=== PATIENT | male | born 1955 | race Caucasian/White ===

== ENCOUNTER 2022-10-21 08:41 | Outpatient (CLI) | payer MEDICARE, SELFPAY | END 2022-10-21 08:42 | disposition home or self-care (01) | PROVIDERS: PCP Family Medicine; Visit Provider Surgery | DX: Z12.11 Encounter for screening for malignant neoplasm of colon (principal); K63.5 Polyp of colon; K62.1 Rectal polyp; K57.30 Diverticulosis of large intestine without perforation or abscess without bleeding; Z83.71 Family history of colonic polyps | CPT/HCPCS: 45380; 45385; 88305; 99153; J1200; J2250; J3010 ==

== ENCOUNTER 2023-02-16 11:23 | Emergency (ER) | payer MEDICARE, SELFPAY ==
[2023-02-16] VITALS (9 sets, daily range): BP systolic 145–183; BP diastolic 75–109; PULSE 76–90; RESP 18; TEMP 36.3; O2SAT 96–99; BMI 32.1
--- NOTE | 2023-02-16 12:02 | CRLHL7_ITS ---
For Patients: As a result of the Cures Act, medical imaging exams and procedure reports are released immediately into your electronic medical record. You may view this report before your referring provider. If you have questions, please contact your health care provider. INDICATION: Right temporomandibular joint pain TECHNIQUE: CT maxillofacial without contrast. COMPARISON: None FINDINGS: Facial bones: No evidence of fracture. Minimal osteophytes bilateral temporomandibular joints with slight flattening of the right mandibular condyle consistent with osteoarthritis. Orbits and globes: Unremarkable. Globes are intact. No sign of intraorbital hemorrhage or emphysema. Sinuses: Mild mucosal thickening paranasal sinuses. Soft tissues: Atherosclerosis. IMPRESSION: Mild bilateral temporomandibular joint osteoarthritis, greater on the right. Please note that all CT scans at this facility use dose modulation, iterative reconstruction, and/or weight-based dosing when appropriate to reduce radiation dose to as low as reasonably achievable. Dictated by Nathaniel Amor MD @ 02/16/2023 1:13:25 PM (Electronically Signed)
--- NOTE | 2023-02-16 12:03 | ED_ITS ---
HPI - General Adult General Chief complaint: Jaw Injury/Pain Stated complaint: possible TIA symptoms Time Seen by Provider: 02/16/23 11:35 History of Present Illness HPI narrative: This 67-year-old male comes in reporting pain in the right temporal mandibular joint. He states that this pain is been present for the past several months but became worse over the last week and especially this morning. He has also had nausea symptoms and states that he has been taking Protonix. This morning also he had nausea and some associated diaphoresis. He is not taking any nausea medications. He does have diabetes but is otherwise in good health. He does not report any fevers or sore throat. He does not indicate any ear pain or dental pain. He states that he has sleep apnea and has worn a mouth guard on occasion which seems to give some relief to his symptoms. When he removes the mouth guard he feels more discomfort so his not worn this routinely. Related Data Home Medications Medication Instructions Recorded Confirmed atorvastatin 10 mg tablet 10 mg PO 06/20/22 06/20/22 blood sugar diagnostic (Accu-Chek #10 ea 06/20/22 06/20/22 Patt Plus test strips) glipizide 5 mg tablet, extended ea PO 06/20/22 06/20/22 release 24 hr lisinopril 10 1 tab PO 06/20/22 06/20/22 mg-hydrochlorothiazide 12.5 mg tablet metformin 500 mg tablet,extended tab PO 06/20/22 06/20/22 release 24 hr omeprazole 40 mg capsule,delayed 40 mg PO 06/20/22 06/20/22 release Previous Rx's Medication Instructions Recorded nirmatrelvir 300 mg (150 mg See Rx Instructions PO .COMPLEX 06/20/22 x2)-ritonavir 100 mg tablet,dose #30 ea pack(EUA) (Paxlovid) peg 3350-electrolytes 236 240 ml PO Q10M #4,000 mL 08/31/22 gram-22.74 gram-6.74 gram-5.86 gram solution (Golytely) methylprednisolone 4 mg tablets in See Rx Instructions PO .COMPLEX 02/16/23 a dose pack (Medrol (Demetrius)) #21 ea ondansetron HCl 4 mg tablet 4 mg PO Q6H #30 tabs 02/16/23 Allergies Allergy/AdvReac Type Severity Reaction Status Date / Time Sulfa (Sulfonamide Allergy Mild Rash Verified 06/20/22 10:56 Antibiotics) Review of Systems Status of ROS: Reports: 10 or more systems reviewed and unremarkable except as noted in History and below Narrative: Constitutional: No fevers, no weight gain or loss. Eyes: No discharge. No vision changes. HENT: No congestion, no sore throat, no ear pain. Right TMJ pain as described above. Cardiovascular: No chest pain, no palpitations. Respiratory: No shortness of breath, no wheezes, no cough. Gastrointestinal: No abdominal pain, no vomiting, no diarrhea. He reports recurrent nausea symptoms. Genitourinary: No dysuria, no hematuria. Musculoskeletal: Normal range of motion. Skin: No rashes, no pruritis. Neurological: No dizziness, weakness, sensory change, speech change. Endo/Heme/Allergies: No bruising or bleeding. No polydipsia. Pysch: no suicidality, no anxiety, no insomnia. All other systems reviewed and are negative. [facility] Medical History (Updated 02/16/23 @ 13:47 by Derik Solorio MD) COVID ?U07.1 - COVID-19 (ICD-10) Cough ?R05.9 - Cough, unspecified (ICD-10) Social History Smoking Status: Never smoker How often do you have a drink containing alcohol: monthly or less How often do you have six or more drinks on one occasion: Never AUDIT-C Alcohol total score: 1 Non-prescribed substance use: denies use Exam Narrative: Exam Narrative: Constitutional: Well-developed, well-nourished, no acute distress. HEENT: Normocephalic, atraumatic. Oropharynx appears normal. He has full range of motion of his mandible. He reports pain at the right TMJ. Neck: Normal range of motion. Nontender. Supple. Heart: Regular. No murmurs. Normal rate. Intact distal pulses. Lungs: Clear to auscultation. No chest discomfort. No wheezes, rhonchi, or rales. Abdomen: Normal bowel sounds. Nontender. No rebound tenderness. Genitalia: Deferred. Back: No midline tenderness. Normal range of motion. Extremities: Normal range of motion. No injury. Skin: Intact. No rash. Warm. No erythema or pallor. Neurologic: No altered sensation. No weakness. Alert and oriented. Psychiatric: No suicidality. No anxiety or depression. No insomnia. Nursing notes and vitals signs are reviewed. Const: Vital Signs, click to edit/add: Vital Signs - 24 hr 02/16/23 11:41 02/16/23 11:52 02/16/23 11:53 Temperature 97.3 F L Pulse Rate 88 80 Pulse Rate [Right Pulse Oximeter] 87 Respiratory Rate 18 Blood Pressure 164/86 H Blood Pressure [Ri ght Upper Arm] 183/109 H Pulse Oximetry 98 96 98 Oxygen Delivery Me thod Room Air 02/16/23 12:00 02/16/23 12:02 02/16/23 12:17 Temperature Pulse Rate 82 76 90 Pulse Rate [Right Pulse Oximeter] Respiratory Rate Blood Pressure 158/85 H Blood Pressure [Ri ght Upper Arm] Pulse Oximetry 98 98 99 Oxygen Delivery Me thod 02/16/23 12:30 02/16/23 12:37 02/16/23 12:45 Temperature Pulse Rate 82 78 76 Pulse Rate [Right Pulse Oximeter] Respiratory Rate Blood Pressure 145/75 H Blood Pressure [Ri ght Upper Arm] Pulse Oximetry 99 98 98 Oxygen Delivery Me thod Course Vital Signs Vital signs: Initial Vital Signs Temperature 97.3 F L 02/16/23 11:41 Temperature Source Temporal Artery Scan 02/16/23 11:41 Pulse Rate 87 02/16/23 11:41 Respiratory Rate 18 02/16/23 11:41 Blood Pressure 183/109 H 02/16/23 11:41 Blood Pressure Mean 133 H 02/16/23 11:41 Blood Pressure Position Sitting 02/16/23 11:41 Pulse Oximetry 98 02/16/23 11:41 Oxygen Delivery Method Room Air 02/16/23 11:41 Vital Signs Temperature 97.3 F L 02/16/23 11:41 Pulse Rate 87 02/16/23 11:41 Respiratory Rate 18 02/16/23 11:41 Blood Pressure 183/109 H 02/16/23 11:41 Pulse Oximetry 98 02/16/23 11:41 Oxygen Delivery Method Room Air 02/16/23 11:41 Temperature 97.3 F L 02/16/23 11:41 Pulse Rate 76 02/16/23 12:45 Respiratory Rate 18 02/16/23 11:41 Blood Pressure 145/75 H 02/16/23 12:37 Pulse Oximetry 98 02/16/23 12:45 Oxygen Delivery Method Room Air 02/16/23 11:41 Medical Decision Making MDM Narrative Medical decision making narrative: This patient comes in with pain in his right temporal mandibular joint. He has had this pain for several months but it has worsened recently. He states that he has worn a mouth guard and it does bring some relief while wearing it but when he takes at out his jaw are reverts back to a previous position that causes some discomfort for him so he has not worn it much recently. CT imaging of his facial bones today show no other findings except mild to moderate degenerative changes of the temporomandibular joints, right greater than left. The patient received a Medrol Dosepak and prescription for Zofran. He understands that the steroid will cause his blood glucose to elevate temporarily. I advised him to wear the mouth guard and to follow-up with his primary physician if not improving. ECG Data Attestation: I personally reviewed and interpreted this ECG as follows: Interpretation: Normal sinus rhythm. Rate is 81 beats per minute. There are no ST or T-wave a bnormalities. Discharge Plan Discharge Clinical Impression: TMJ arthralgia Patient Disposition: Home, Self-Care Condition: Stable Additional Instructions: Take medication as prescribed. It is recommended to where the mouth guard at night. Follow up with primary physician or return if worsening. Prescriptions: New ondansetron HCl 4 mg tablet 4 mg PO Q6H Qty: 30 0RF methylprednisolone [Medrol (Demetrius)] 4 mg tablets,dose pack See Rx Instructions .ROUTE .COMPLEX Qty: 21 0RF Rx Instructions: orally per package directions No Action glipizide 5 mg tablet extended release 24hr PO metformin 500 mg tablet extended release 24 hr PO omeprazole 40 mg capsule,delayed release(DR/EC) 40 mg PO lisinopril-hydrochlorothiazide 10-12.5 mg tablet 1 tab PO (DME) Accu-Chek Patt Plus test strp Strip See Rx Instructions .ROUTE .MEDSUPPLY Qty: 10 Patient Comments: USE TO TEST THREE TIMES DAILY Rx Instructions: As directed atorvastatin 10 mg tablet 10 mg PO Paxlovid (EUA) 300 mg (150 mg x 2)-100 mg tablets,dose pack See Rx Instructions PO .COMPLEX Qty: 30 0RF Rx Instructions: take TWO 150 mg tablets of nirmatrelvir with ONE 100 mg tablet of ritonavir twice daily for 5 days PO for covid treatment. peg 3350-electrolytes [Golytely] 236-22.74-6.74 -5.86 gram recon soln 240 ml PO Q10M Qty: 4000 0RF Rx Instructions: Follow colonoscopy prep instructions given in clinic. Follow Up/Referrals: Gerhard Rey MD [Primary Care Provider] - Stand [facility]one [facility]: [facility]
== END 2023-02-16 13:54 | disposition home or self-care (01) ==
PROVIDERS: Emergency Provider Emergency Medicine Emergency Medical Services; PCP Family Medicine
DX: M26.601 Right temporomandibular joint disorder, unspecified (principal); M26.621 Arthralgia of right temporomandibular joint
CPT/HCPCS: 70486; 93005; 99284

== ENCOUNTER 2024-11-27 11:15 | Outpatient (RCR) | payer MEDICARE, SELFPAY | END 2024-11-27 11:55 | disposition home or self-care (01) | PROVIDERS: PCP Family Medicine; Visit Provider Family Medicine | DX: M26.602 Left temporomandibular joint disorder, unspecified (principal); M26.622 Arthralgia of left temporomandibular joint; Z74.09 Other reduced mobility; R29.3 Abnormal posture; M62.81 Muscle weakness (generalized); Z51.89 Encounter for other specified aftercare | CPT/HCPCS: 97110; 97140; 97161 ==

== ENCOUNTER 2025-09-27 19:48 | Emergency (ER) | payer MEDICARE, SELFPAY ==
--- OUTSIDE RECORDS SUMMARY | 2023-09-30 03:31 | XMS_ITS | Continuity of Care Document ---
Author Organization [facility] Address [address] [address] [place] [address] Phone Care Team Providers Care Elastic Attacher Zigzag Name Role Phone Kerri Carnes CRNA Unavailable Unavailable Allergies, Adverse Reactions, Alerts Substance Reaction Status Criticality trimethoprim Rash Active No Information sulfamethoxazole Rash Active No Informat ion Medications Medication Instructions Dosage Effective Dates (start - stop) Status Comments metformin 500 mg tablet take 1 tablet by ORAL route 2 times every day . 500 MG - Active lisinopril 20 mg-hydrochlorothiaz michael 12.5 mg tablet take 2 tablet by oral route every day 2 tablet - Active glipizide ER 5 mg tablet, extended release 24 hr take 1 tablet by oral route every day with breakfast 5 MG - Active atorvastatin 10 mg tablet take 1 tablet by ORAL route every bedtime 10 MG - No Longer Active oxycodone 10 mg tablet take 1 tablet by oral route every 4 hours as needed 10 MG No Longer Active duloxetine 30 mg capsule,delayed release take 1 capsule by oral route every day 30 MG No Longer Active omeprazole 40 mg capsule,delayed release take 1 Capsule by ORAL route every day before a meal 40 MG No Longer Active famotidine 20 mg tablet take 1 by Oral route 2 times every day No Longer Active Procedures Procedure Date Ugi Endo; W/bx /mx Level Iv-surg Path Gross/micro Ugi Endo; W/bx /mx Jd-05-2022 Level Iv-surg Path Gross/micro Advance Directives Directive Yes / No Effective Date File Name No Information Encounters Encounter Description Practice Location Reason(s) For Visit Diagnoses Date Provider Providers Copied on Encounter [facility], [address] [address], [place], [place], [id number], [place] tel:[phone] [facility] No Information 3 Deyvi LOWE Kerri. [address], [place], [place], [id number] , [place]. tel: [phone] Referring Provider: Quintin Kan, [address], [place], [address] . tel:[phone] [facility], [address] [address], [place], [place], [id number], [place] tel:[phone] [facility] GI Symptoms or Concerns (chief complaint) Iron deficiencyDuodeniti s without bleedingIron deficiency anemia, unspecified 3 Mari Ribeiro. [address], [place], [place], [id number] , [place]. tel: [phone] Referring Provider: Gerhard Archuleta, [address] [place] [address], [place], [address]. tel:[phone] [facility], [address] [address], [place], [place], [id number], [place] tel:[phone] [facility] No Information 3 Reymundo Ro. [address], [place], [place], [id number] , [place]. tel: [phone] [facility], [address] [address], [place], [place], [id number], [place] tel:[phone] [facility] Epigastric painEpigastric pain 2 Mari Ribeiro. [address], [place], [place], [address] , [place]. tel: [phone] Referring Provider: Gerhard Archuleta, [address], [place], [address]. tel:[phone] [facility], [address] [address], [place], [id number], [place] tel:[phone] [facility] No Information 2 Jerod Tracey. [address], [address], [place], [id number] , [place]. tel:[phone] Family History Family Member Type Diagnosis Age At Onset No Information Immunizations Vaccine Date Status Comments SARS-COV-2 (COVID-19) vaccin e, mRNA, spike protein, LNP, preservative free, 100 mcg/0.5mL dose or 50 mcg/0.25mL dose administered Note: [facility] bi -directional interface ; Source: Other Registry zoster vaccine recombinant administered N ote: [facility] bi-directional interface ; Source: Other Registry zoster vaccine recombinant administered N ote: [facility] bi-directional interface ; Source: Other Registry SARS-COV-2 (COVID-19) vaccin e, mRNA, spike protein, LNP, preservative free, 100 mcg/0.5mL dose or 50 mcg/0.25mL dose administered Note: [facility] bi -directional interface ; Source: Other Registry SARS-COV-2 (COVID-19) vaccin e, mRNA, spike protein, LNP, preservative free, 100 mcg or 50 mcg dose administered Note: [facility] bi-direct ional interface ; Source: Other Registry SARS-COV-2 (COVID-19) vaccin e, mRNA, spike protein, LNP, preservative free, 100 mcg/0.5mL dose or 50 mcg/0.25mL dose administered Note: [facility] bi -directional interface ; Source: Other Registry SARS-COV-2 (COVID-19) vaccin e, mRNA, spike protein, LNP, preservative free, 100 mcg or 50 mcg dose administered Note: [facility] bi-direct ional interface ; Source: Other Registry tetanus toxoid, reduced diphtheria toxoid, and acellular pertussis vaccine, adsorbed Oct-29-2012 administered Note: [facility]vez i-directional interface ; Source: Other Registry Payers Payer name Insurance type Covered green party ID Quinn chow(s) [employer] Medicare Advantage [id number] 2000 Social History Type Description Quantity Date Captured Comments Sex Male Smoking Status No Information Chief Complaint And Reason For Visit No Information Reason For Referral Reason For Referral No Information History Of Present Illness Encounter Date Complaint History Of Prese nt Illness GI Symptoms or Concerns Functional Status Date Functional Assessmen t No Information Instructions Date Instruction Additional Infor mation GERD Related to Epiga stric pain Assessments Type Assessment Date No Information Patient Care Teams Name Effective Dates (start - stop) Status Members No Information
--- OUTSIDE RECORDS SUMMARY | 2025-09-27 19:49 | XMS_ITS | Data Portability ---
Author Organization [place] [facility] Address [address] [place] [address] Care Team Providers Care Sausage Stringer Name Role Phone SOPHIA WINCHESTER Primary Care Provider [facility] Referring Provid er Assessment No assessment recorded. Plan of Treatment Reminders Order DateSubmit DateProviderLast Modified ByOrganization DetailsLast Modified TimeDetailsAppointmentsNone recorded.LabNone recorded.ReferralNone recorded. ProceduresNone recorded.SurgeriesNone recorded.ImagingNone recorded.Medication OrdersEdex 20 mcg intracavernosal kitTHE [id number] [address] [place], [place], [phone], 07/10/2025 09:09:01 Patient TargetsNo targets recorded. Patient Instructions Encounter Date Encounter Id Patient Instructions Last Modified By Organization Details Last Modified Time 07/10/2025 [id number] 70 y/o male pres ents for an ED evaluation Educated on etiology of ED (hormonal, nerve function, blood supply, psychological, medications). Discussed diagnostics such as penile US and testosterone labs. Educated on treatment options such as PDE-5 inhibitors, penile injections, muse, vacuum erection device (LITA), shockwave therapy and penileimplant (IPP). He is interested in pursuit of penile injections. Educated on proper injection technique. Instructed to trial 20 mcg at home. Provided hand out on penile injections. Discussed risks of priapism and scar tissue development. Patient to call with questions or concerns.ingcgyq8Ryr lnqzeilaw98/05/2025 09:18:14 Reason for Referral None Reported. Procedures Surgical History Date Name Laterality Status Provider Name and Address Organization Details Recorded Time Removal of sperm duct(s)completedNot AvailableHealth Note07/06/2025 10:22:09 Imaging Results None recorded. Procedure Notes None recorded. Medical Equipment None Reported. Allergies Allergen ID Allergen Name Allergen Category Reaction Reaction Severity Criticality Documentation Date Start Date Code Code System Note Provider Name and Address Organization Details Recorded Time 466512 Substance with sulfo namide structure and antibacterial mechanism of action (substance) medication rash Not available Not hrubpfumv19/04/1851720230594MCREEDWml AvailableHealth Note07/06/2025 10:22:84925451qhrsslweakxskgfp / trimethoprimmedicationrash Not available Not [id number] [facility] [employer] [facility]07/31/2025 11:41:93268108qxdifhuhybzlxootpfvxoidux Not available Not [id number] [facility] [employer] [facility]07/31/2025 11:41:29088121bsvkyvntnzreelgklpbnrhcbkvsdn (muscle pain) Not available Not [id number] [facility] [employer] [facility]07/31/2025 11:41:95269994wqnkyemvxlkklyndacwbxuFzi available Not available Not [id number] [facility] [employer] [facility]08/05/2025 11:26:80037027tocduembjoygsjijpkabpfxmlsSiy available Not available Not yasluybir15/740200626RfYixeOzw [facility] [employer] [facility]08/05/2025 11:26:53 Medications Name Sig Start Date Stop Date Status Note LastModified by Organization Details LastModified Time compounded medication Inject 0.1-0.7 cc intracavernosal as directed for sexual activity 07/19/2025 activeNot AvailableNot AvailableNot Availablecompounded medicationInject 0.1-0.7 cc intracavernosal as directed for sexual vuqhwojz33/20/2025activeNot Available Not AvailableNot Availablecompounded medicationInject 0.1-0.7 cc intracavernosal as directed for sexual ypbmregi68/17/2025activeNot AvailableNot AvailableNot Availablecompounded medicationInject 0.1-0.7 cc intracavernosal as directed for sexual /03/2025activeNot AvailableNot AvailableNot Available clotrimazole 10 mg trocheTAKE 10MG TO AFFECTED AREA FIVE TIMES DAILY. STOP THERAPY AFTER 7 DAYS IF SYMPTOMS ARE GONEactiveNot AvailableNot AvailableNot AvailableEdex 20 mcg intracavernosal kitINJECT INTRACAVERNOSAL NEEDED FOR SEXUAL ACTIVITYactiveNot AvailableNot AvailableNot Availableatorvastatin 10 mg tabletTAKE 1 TABLET BY MOUTH EVERY OTHER DAY IN THE EVENINGactiveNot Available Not AvailableNot Availablesildenafil 100 mg tabletTAKE 1 TABLET BY MOUTH 30 MINUTES TO 4 HOURS BEFORE SEXUAL ACTIVITY. MAXIMUM DAILY DOSE IS 1 TABLETactive Not AvailableNot AvailableNot Availablecarvedilol 3.125 mg tablet3.125mg 2/day activeNot AvailableNot AvailableNot Availableamoxicillin 875 mg tabletTAKE 1 TABLET BY MOUTH TWICE DAILY UNTIL ALL TAKEN5completedNot AvailableNot AvailableNot Availablefamotidine 20 mg tabletTAKE 1 TABLET BY MOUTH TWICE DAILY FOR 7 DAYSactiveNot AvailableNot AvailableNot Availablesertraline 25 mg tablet 25mg 1/dayactiveNot AvailableNot AvailableNot Availablelisinopril 10 mg- hydrochlorothiazide 12.5 mg tabletTAKE 1 TABLET BY MOUTH DAILYactiveNot AvailableNot AvailableNot Availableondansetron 4 mg disintegrating tablet DISSOLVE 1 TABLET ON THE TONGUE EVERY 6 HOURS NEEDED FOR NAUSEA OR VOMITING activeNot AvailableNot AvailableNot AvailableFish Dim6490 mg 1/dayactiveNot AvailableNot AvailableNot Availablemetformin2- 500ml twice daily 2/dayactiveNot AvailableNot AvailableNot Availableglipizide ER 2.5 mg 24 hr tablet,extended bijknve6nb 1/dayactiveNot AvailableNot AvailableNot Availablerosuvastatin 10 mg sprinkle dbvqlru09mk 1/dayactiveNot AvailableNot AvailableNot Available Vitals Date Recorded Body weight Body mass index (BMI) Body height Provider Name and Address Organization Details Last Updated DateTime 07/10/2025 01895.10974 56936 g 26.5 kg/m2 180.34 cm Not Available Health Note 07/10/2025 08:50:20 Social History Question Answer Notes LastModified by Organization D etails LastModified Time Tobacco Smoking Status Former Smoker Not AvailableHealth Note07/06/2025 10:22:09Do You Have An Advance Directive?Yes [email or web address] not /04/2025What Is Your Level Of Caffeine Consumption?[email or web address] not azrfloolq95/04/2025How Much Tobacco Do You Chew?[email or web address] not qsrrffaem11/04/2025When Did You Quit Smoking?16+ Years Since Last CigaretteAPI-[email or web address] not xguaxzpqs94/04/2025 Do You Have A Medical Power Of Lumber Chain Offbearer?[email or web address] not available 07/06/2025What Was The Date Of Your Most Recent Tobacco Screening?07/10/2025 [email or web address] not /04/2025What Is Your Relationship Status? [email or web address] not kjcintboy13/04/2025re You Sexually Active?Yes [email or web address] not hfropbpwc09/04/2025How Many Years Have You Smoked Tobacco?[email or web address]-685Information not mptwfiovf87/04/2025How Many Days In The Past Year Have You Consumed 5 Or More Drinks?[email or web address] not available 07/06/2025 Sex: Unknown Functional Status Question Answer Note LastModified by Organization D etails LastModified Time Do you use any illicit or recreational drugs? No [email or web address] not sdpywlmaa67/04/2025What is your level of alcohol consumption?[email or web address] not bvnranlpd82/04/2025Do you or have you ever used smokeless tobacco?Never used smokeless [email or web address] not yvpotstrj41/04/2025Do you or have you ever used e-cigarettes or vape?Never used electronic [email or web address] not /04/2025 Mental Status None recorded. Family History Relationship Description Onset Age of this Age Resolved Age Notes LastModified by Organization Details LastModified Time Mother Family history of diabetes sylvia jose [email or web address] fkegfilnt45/04/2025 10:22:08 Medical History Condition Response Sexually Transmitted Infection N Diabetes Y Bleeding Disorder N High Blood Pressure N Kidney Stones N Cancer N Lung Disease N Depression N High Cholesterol Y GERD/Acid Reflux N Heart Disease N Immunizations Vaccine Type Date Status Note Provider Nam e and Address Organization Details Recorded Time zoster live 10/03/2021 completed Not AvailableHealth Note07/06/2025 10:22:44VKSV-CMU-4 (COVID-19) vaccine, IQLHBUEVBQF16/01/2022completedNot AvailableHealth Note07/06/2025 10:22:11Tdap 07/31/2012completedNot MpssknszdVefzpjCbnzfn05/08/2025 08:51:38COVID-19, mRNA, LNP-S, PF, 100 mcg/0.5mL dose or 50 mcg/0.25mL dose12/17/2020ompletedNot VdeiectdwCokeeiHfjxcb89/08/2025 08:51:38COVID-19, mRNA, LNP-S, PF, 100 mcg/0.5mL dose or 50 mcg/0.25mL dose01/15/2021ompletedNot WdczncytgUpvmiqYxdfdr26/08/2025 08:51:38zoster mauggxrelwb19/17/2021ompletedNot DjxhjmwgmUenlqtUpwyww86/08/2025 08:51:38 Past Encounters Encounter ID Performer Location Encounter Start Date Encounter Closed Date Diagnosis/Indication Diagnosis SNOMED-CT Code Diagnosis ICD10 Code Diagnosis IMO Codes Diagnosis Note [id number] REZA CENT[facility] [address] [address] 07/10/2025 08:47:52 07/10/2025 10:58:10 Primary erectile dysfunction 293486859 N52.9 [id number] Health Concerns Section Related Observation LastModified by Organization Detai ls LastModified Time None Recorded Concern Status LastModified by Organization Details LastModified Time None Recorded Advance Directives Directive Y: Payers Insurance Date Sequence Insurance Name Policy Number Policy Guzmán Covered Member ID Guzmán Member ID Guarantor Name 07/18/2025 1 [place] [id number] Heri A Grisim [id number] Heri A Grisim Notes Date Note Type Note Provider Name and Address Organization Details Recorded Time text/html Erectile DysfunctionReported by Ljvtoxc84 y/o male presents for an evaluation of erectile dysfunction (ED). He reports difficulty with erections for the past 10+ years. No preceding event he can associate to the development of ED. Gradual decline in erectile function since initial onset. He has tried Sildenafil and Tadalafil which have been largely ineffective. He has not tried any other treatments for ED. He is able to achieve an ehs of 2 with inadequate maintenance. No pain or curvature to penis with erections. Good libido and energy. EMILY HOOVER, [facility] [address] [place] [address],[address], [place], [address], [facility] 07/10/2025 09:19:13
--- OUTSIDE RECORDS SUMMARY | 2025-09-27 19:49 | XMS_ITS | Clinical Summary ---
Author Organization [facility] Address [address] [place] [address] Care Team Providers Care Environmental Conservation Officer Name Role Phone Gerhard Rey MD Primary Care Provider [phone]- [phone] Allergies Active AllergyReactionsCriticalityNoted DateComments Sulfamethoxazole-XvstnajsxevzUfqa49/01/8613VulvwmbvjxMerce81/04/2019Simvastatin Dmanvbi5808/19/2021 Medications MedicationSigDispense QuantityRefillsLast FilledStart DateEnd DateStatus lancets (MICROLET LANCET) As directed. Test 3 times per day. Dispense brand covered by insurance. 300 Each ctive blood-glucose meter Indications:Uncontrolled type 2 diabetes mellitus without complication, without long-term current use of insulinDispense meter, test strips, lancets covered by pt ins. E11.65 NIDDM type II, uncontrolled - Test 3times/day, Reason: High A1C 1 Device 02/24/2018Active tadalafiL (CIALIS;ADCIRCA) 20 mg tablet Indications:Erectile dysfunction due to arterial insufficiencyTake 1 Tablet (20 mg) by mouth once daily if needed for Erectile Dysfunction. Take 30 minutes before sexual activity. 10 Tablet ctive LORazepam (ATIVAN) 0.5 mg tab Indications:AnxietyTake 0.5-1 Tablets (0.25-0.5 mg) by mouth every 8 hours if needed for Anxiety. 20 Tablet ctive predniSONE (DELTASONE) 10 mg tablet Indications:Lumbar radiculopathyTake 5 tablets daily for 3 days, then 4,3,2, 1 each daily for 3 days then discontinue. 45 Tablet 5Active lisinopril-hydrochlorothiazide (10-12.5 mg) tablet (PRINZIDE; ZESTORETIC) Indications:HTN (hypertension)Take 1 Tablet by mouth once daily. 90 Tablet 5Active glipiZIDE extended-release (GLUCOTROL XL) 5 mg Extended-Release tablet Indications:Type 2 diabetes mellitus without complication, without long-term current use of insulin (HC)Take 1 Tablet (5 mg) by mouth once daily before a meal. 90 Tablet 5Active empagliflozin 10 mg tablet Indications:Type 2 diabetes mellitus with diabetic polyneuropathy, without long- term current use of insulin (HC),Type 2 diabetes mellitus without complication, without long-term current use of insulin (HC)Take 1 Tablet (10 mg) by mouth once daily. 90 Tablet 5Active rosuvastatin 10 mg tablet Indications:Hyperlipidemia with target LDL less than 100Take 1 Tablet (10 mg) by mouth at bedtime. 90 Tablet 5Active carvediloL 3.125 mg tablet Indications:Essential hypertensionTake 1 Tablet (3.125 mg) by mouth two times daily with meals. 180 Tablet 5Active sildenafil citrate 100 mg tablet Indications:ED (erectile dysfunction) of organic originTAKE 1 TABLET BY MOUTH 30 MINUTES TO 4 HOURS BEFORE SEXUAL ACTIVITY. MAXIMUM DAILY DOSE IS 1 TABLET 17 Tablet 5Active metFORMIN 500 mg Extended-Release tablet Indications:Type 2 diabetes mellitus with diabetic polyneuropathy, without long- term current use of insulin (HC),Type 2 diabetes mellitus without complication, without long-term current use of insulin (HC)Take 1 Tablet (500 mg) by mouth two times daily with meals. 180 Tablet 5Active blood sugar diagnostic (Accu-Chek Patt Plus test strp) strip Indications:Type 2 diabetes mellitus without complication, without long-term current use of insulin (HC)Dispense item covered by pt ins. E11.9 NIDDM type II - Test 1 time/day 100 Each 5Active alprostadil (Vasodilator) (Madison) 1,000 mcg pellet Indications:Other male erectile dysfunctionInsert 1,000 mcg into the urethra each time if needed for Erectile Dysfunction. Max 1 dose in 24 hrs. 6 Suppository 505Active Active Problems ProblemNoted DateDiagnosed DateArthritis of both temporomandibular joints 10/26/2024 Overview (10/26/2024): Noted on MRI head exam from 10/2024. Clinically prominent on left. Iron deficiency ihnqos1103/07/2024 Overview (03/07/2024): He had a reassuring colonoscopy in 10/2022 and is due for a follow up in 5 years. Heri reports he had a normal upper endoscopy in early spring of 2023. COVID-19 virus jecgcsnvh22/01/2023Carpal tunnel syndrome on both sides10/09/2018 Essential arnvbqypyyhw05/21/2018Chronic GERD11/30/2017Type 2 diabetes mellitus with diabetic polyneuropathy, without long-term current use of ducqfwb6707/28/2016 Erectile rbfrpuqyqku82/12/2016 Overview (02/12/2016): After several exchanges with his insurance company and pharmacy it was determined that his insurance will only cover Sildenafil 20 mg daily (none of the other agents or formulations are covered). Controlled substance agreement smhqoo4212/02/2014Lumbar disc herniations at L2-3 and L3-Lumbar facet arthropathy above the fbabvi5710/31/2014 Overview (06/25/2015): Limit to 4 prednisone courses per year. Hyperlipidemia LDL goal < 4348907/31/2012 Overview (08/26/2020): He decided he did not want to take statins because of what he was reading about statins causing cancer. He stopped the statin in fall of 2017. He agrees to restart Simvastatin 08/15/2019. He stopped his statin several months ago as of 08/26/2020. He refuses to start them and also refuses see Cardiology about other cholesterol medications. L4-Sacrum pcdxes5503/26/20091194Lfuugiwrlnil80/08/2008 Resolved Problems ProblemNoted DateDiagnosed DateResolved DateReactive inflammatory arthritis /20/2023Diabetic peripheral /26/201601/06/2025Low back pain radiating to both legsDisplacement of lumbar intervertebral disc without tejkmgzkni63 Encounters DateTypeDepartmentCare QhibNyfmftfdjau15/16/2025Telephone [facility] [address] [facility] [address] Gerhard Rey MD Jdwpaklcu72/24/2025Orders Only [facility] Scanner 1 scan: (1-Ord) [facility], 51Refill [facility] [address] [place] [address] Gerhard Rey MD Refill Request (prednsione)from Last 3 Months Immunizations ImmunizationAdministration DatesNext IuzKxhr22/29/2012Zoster (Shingrix-RZV, recombinant)10/05/2021,08/19/2021 Family History Medical HistoryRelationNameCommentsDementiaFatherOtherFathercolon polyps 70s YucqymerCjrkiy10cIuozckgh heart diseaseMotherValve replacementDiabetesSisterage 49RelationNameStatusCommentsFatherDeceasedMotherDeceasedSister Social History Tobacco UseTypesPacks/DayYears UsedDateSmoking Tobacco: FormerCigarettes0.515 10/03/1978 - 10/03/1993Smokeless Tobacco: Never Tobacco Cessation:Counseling Given: Yes Comments:Quit Alcohol UseStandard Drinks/WeekCommentsNot Currently0 (1 standard drink = 0.6 oz pure alcohol)less than monthlyPHQ-2AnswerDate RecordedPHQ-2 TOTAL SCORE2 09/04/2024Social ConnectionsAnswerDate RecordedDo you often feel lonely or isolated from those around you?lcohol UseAnswerDate RecordedHow often do you have a drink containing alcohol?How many drinks containing alcohol do you have on a typical day when you are drinking?0 02/01/2025How often do you have five or more drinks on one occasion? Financial Resource StrainAnswerDate RecordedDifficulty of Paying Living Expenses ifficulty of Paying Living ExpensesNot on file03/07/2024Food InsecurityAnswerDate RecordedDo you worry your food will run out before you are able to buy more?Transportation NeedsAnswerDate RecordedDoes lack of transportation keep you from medical appointments?oes lack of transportation keep you from work, meetings or getting things that you need?1 03/07/2024Housing StabilityAnswerDate RecordedWhat is your housing situation today?UtilitiesAnswerDate RecordedDo you have trouble paying for utilities (for example, heat, electricity, water, phone)?Sex and Gender InformationValueDate RecordedSex Assigned at BirthNot on fileLegal Sex Male10/16/2012 6:12 AM CSTGender IdentityNot on fileSexual OrientationNot on file Last Filed Vital Signs Vital SignReadingTime TakenCommentsBlood Plbicbmr938/7508 10:48 AM CDT Oeqto042705/21/2025 10:07 AM OUZUagqrfjobmk69.1 ??C (97 ??F)02/01/2025 11:24 AM CDTRespiratory Lhyr455610/23/2015 2:53 PM CSTOxygen Ooxxyljcoq775%05/21/2025 10:07 AM CDTInhaled Oxygen Concentration--Muvssi70.3 kg (194 lb 9.6 oz)05/21/2025 10:07 AM KNZQvfauq234.3 cm (5' 10.59)10/26/2024 11:31 AM CSTBody Mass Index 27.46010/26/2024 11:31 AM FIELD ASSISTANT Plan of Treatment DateTypeDepartmentCare Team (Latest Contact Info)Quxtushmykh49/21/2026 8:50 AM CSTOffice Visit [facility] [address] [place] [address] Gerhard Rey MD [address] [place] [address] 11/21/2025 10:15 AM CSTOrders Only [facility] [address] [place] [address] [facility] 11/21/2025 10:30 AM CSTNurse/Clinic Staff Only [facility] [address] [place] [address] 11/26/2025 8:20 AM CSTOffice Visit [facility] [address] [place] [address] Gerhard Rey MD [address] [place] [address] Health MaintenanceDue DateLast DoneCommentsPneumococcal series for age 50+ (1 of 2 - PCV)1975RSV vaccine for adults or (1 - Risk 50-74 years 1- dose series)2006Medicare Wellness for age 65+2021Tetanus booster COVID-19 vaccine series (2024- season)2025 10/14/2021, 01/15/2021, 12/17/2020Influenza Vaccine (#1)2025Depression screening for age 12+5111/05/2023, 07/09/2022, 07/07/2022, Additional history existsBMI (ht and wt on same day) for age 18+6010/26/2024, 07/15/2023, 07/07/2022, Additional history existsLipids for age 45-05/15/2025, 02/01/2025, 03/06/2024, Additional history existsColonoscopy through age Hepatitis C screening for age 18-80Jmibtvoqb48/11/2021 Zoster (shingles) series for age 50+Riqqbuqtc52/03/2022, 08/19/2021AA screening age 65-39Snkzuqgvg29/14/2022Hepatitis B series for 19+Aged OutNo longer eligible based on patient's age to complete this topic Procedures Procedure NamePriorityDate/TimeAssociated DiagnosisCommentsSCAN-EYE EXAM 08/26/2025 12:00 AM FIELD ASSISTANT LIPID PANEL W REFLEX MEASURED FVEZkjuiqf35/13/2025 8:31 AM CDT Type 2 diabetes mellitus with diabetic polyneuropathy, without long-term current use of insulin (HC) COLONOSCOPY UZBCCVKVFOlkkknc35/19/2023 12:00 AM FIELD ASSISTANT Screening for colon cancer US ABD AORTA KFITHNXSMGttptfd04/14/2022 7:59 AM FIELD ASSISTANT Screening for AAA (aortic abdominal aneurysm) ANTI WUVQewklvo45/11/2021 8:28 AM FIELD ASSISTANT Need for hepatitis C screening test from Last 3 Months or Most Recently Relevant to Health Maintenance Results * SCAN-EYE EXAM (08/26/2025 12:00 AM FIELD ASSISTANT) Narrative Authorizing ProviderResult TypeResult StatusScannerOTHERFinal Result * LIPID PANEL W REFLEX MEASURED LDL (05/15/2025 8:31 AM CDT)ComponentValueRef RangeTest MethodAnalysis TimePerformed AtPathologist SignatureCHOLESTEROL, UMNVE579<200 mg/dLQuantumeHDL IIAEFQSIXPZ93> OR = 40 mg/dL WeOwe SbkoNAWETLCYANXIY70<150 mg/dLQuest Movolo.comeLDL-NCUMKHYALWC12wa/dL (calc)WeOwe DaleComment: Reference range: <100 Desirable range <100 mg/dL for primary prevention; <70 mg/dL for patients with CHD or diabetic patients with > or = 2 CHD risk factors. LDL-C is now calculated using the Horace calculation, which is a validated novel method providing better accuracy than the Friedewald equation in the estimation of LDL-C. Kostas OLSON et al. IDA. 2013;310(19): 0358-5745 (http://education.ScribeStorm.One Codex/faq/ELK903) CHOL/HDLC RATIO3.0<5.0 (calc)QuantumCranston General HospitalN HDL GILCWVJYETX17 <130 mg/dL (calc)[facility]-Phong WhelaneComment: For patients with diabetes plus 1 major ASCVD risk factor, treating to a non-HDL-C goal of <100 mg/dL (LDL-C of <70 mg/dL) is considered a therapeutic option. Specimen (Source)Anatomical Location / LateralityCollection Method / Volume Collection TimeReceived TimeBloodBLOOD SPECIMEN / Uvkqpnv7605/15/2025 8:31 AM CDT 05/15/2025 8:32 AM CDT Narrative Authorizing ProviderResult TypeResult StatusMark Paolo Rey MDCHEMISTRYFinal ResultPerforming OrganizationAddressCity/State/ZIP CodePhone Number [email or web address] [facility] [address] [place] [address], [employer] DiagnosticsA[facility] [address] [place] [address] * COLONOSCOPY SCREENING (10/21/2022 12:00 AM FIELD ASSISTANT) Narrative Authorizing ProviderResult TypeResult StatusMark Paolo Rey MDGI PROCEDURE ORDFinal Result * US ABD AORTA SCREENING [[id number]] (10/16/2021 7:59 AM FIELD ASSISTANT)Anatomical Region LateralityModalityAbdomen, AORTAUltrasoundSpecimen (Source)Anatomical Location / LateralityCollection Method / VolumeCollection TimeReceived Time10/16/2021 10:51 AM FIELD ASSISTANT Impressions 10/16/2021 10:51 AM FIELD ASSISTANT No evidence of abdominal aortic aneurysm. Dictated by Jeremy Vail MD @ Oct 16 2021 10:51AM (Electronically Signed) ?? Narrative 10/16/2021 10:51 AM FIELD ASSISTANT For Patients: As a result of the Century Cures Act, medical imaging exams and procedure reports are released immediately into your electronic medical record. You may view this report before your referring provider. If you have questions, please contact your health care provider. INDICATION: Screening for AAA (abdominal aortic aneurysm) COMPARISON: none TECHNIQUE: Neri scale and color Doppler images were acquired of the abdominal aorta and iliac arteries. FINDINGS: Sonographic imaging demonstrates mild atherosclerotic changes. Proximally, the aorta measures 2.4 cm in diameter, mid 2.2 x 1.6 cm, and distally tapers to a measurement of 1.8 x 2.2 cm. ??The common iliac arteries are patent and measure 1.4 x 1.6 cm on the right and 1.8 x 1.7 cm in diameter on the left. ??There are no suspicious periaortic masses. Procedure Note Jeremy Vail MD - 10/16/2021 For Patients: As a result of the Century Cures Act, medical imagingexams and procedure reports are released immediately into your electronicmedical record. You may view this report before your referring provider.If you have questions, please contact your health care provider. INDICATION: Screening for AAA (abdominal aortic aneurysm) COMPARISON: none TECHNIQUE: Neri scale and color Doppler images were acquired of the abdominal aortaand iliac arteries. FINDINGS: Sonographic imaging demonstrates mild atherosclerotic changes. Proximally,the aorta measures 2.4 cm in diameter, mid 2.2 x 1.6 cm, and distallytapers to a measurement of 1.8 x 2.2 cm. The common iliac arteries arepatent and measure 1.4 x 1.6 cm on the right and 1.8 x 1.7 cm in diameteron the left. There are no suspicious periaortic masses. IMPRESSION: No evidence of abdominal aortic aneurysm. Dictated by Jeremy Vail MD @ Oct 16 2021 10:51AM (Electronically Signed) Authorizing ProviderResult TypeResult StatusMark Paolo Rey MDUSFinal Result * ANTI HCV (08/13/2021 8:28 AM FIELD ASSISTANT)ComponentValueRef RangeTest MethodAnalysis TimePerformed AtPathologist SignatureHEPATITIS C ANTIBODYNon-Reactive Non-Jbeaoexc27/11/2021 3:26 PM CSTMEM[facility]IAL [facility] Comment:Antibodies to HCV not detected; does not exclude the possibility of exposure to HCV.Specimen (Source)Anatomical Location / LateralityCollection Method / VolumeCollection TimeReceived TimeBloodBLOOD SPECIMEN / Unknown Venipuncture / Tlfsteh6208/13/2021 8:28 AM CST08/13/2021 8:28 AM FIELD ASSISTANT Narrative Authorizing ProviderResult TypeResult StatusMark Paolo Rey MDSEND OUTSFinal ResultPerforming OrganizationAddressCity/State/ZIP CodePhone Number [facility] [address] [place] [address], from Last 3 Months or Most Recently Relevant to Health Maintenance Insurance Care Teams Team MemberRelationshipSpecialtyStart DateEnd Date Gerhard Rey MD [facility] [place] [facility] [place] [address] PCP - General10/18/06
[2025-09-27 19:52] VITALS: BP 190/100; PULSE 104; RESP 16; TEMP 36.8; O2SAT 99; BMI 27.2
[2025-09-27 19:56] VITALS: BP 185/98
--- NOTE | 2025-09-27 22:44 | ED.GENADULT ---
HPI - General Adult General Chief complaint: Extremity Pain/Injury, Lower Stated complaint: Fall, R leg injury Time Seen by Provider: 09/27/25 22:43 History of Present Illness HPI narrative: Slipped on ice, presents with pain to R thigh , reports bruising. Did not hit head, no loc, no blood thinners. Denies other injuries. 70-year-old man presenting to the emergency department with complaint of right thigh pain following slipping on the ice and landing on this side. No abdominal pain. No back pain no neck pain. Did not hit his head and there was no loss of consciousness. He is not anticoagulated. History of diabetes. Related Data Home Medications ?Medication ?Instructions ?Recorded ?Confirmed blood sugar diagnostic (Accu-Chek #10 ea 06/20/22 08/13/24 Patt Plus test strips) glipizide 5 mg tablet, extended 5 mg PO QDAY 08/13/24 09/27/25 release 24 hr lisinopril 10 1 tab PO QDAY 08/13/24 09/27/25 mg-hydrochlorothiazide 12.5 mg tablet Previous Rx's ?Medication ?Instructions ?Recorded ondansetron 4 mg disintegrating 4 mg PO Q6H PRN nausea and 08/13/24 tablet vomiting #14 tabs Allergies Allergy/AdvReac Type Severity Reaction Status Date / Time Sulfa (Sulfonamide Allergy Mild Rash Verified 09/27/25 19:55 Antibiotics) Review of Systems Status of ROS: Reports: 6 or more systems reviewed and unremarkable except as noted in History and below [facility] Medical History COVID ?U07.1 - COVID-19 (ICD-10) Cough ?R05.9 - Cough, unspecified (ICD-10) Social History Smoking Status: Never smoker Second hand tobacco smoke exposure: No How often do you have a drink containing alcohol: monthly or less How often do you have six or more drinks on one occasion: Never AUDIT-C Alcohol total score: 1 Non-prescribed substance use: denies use Exam Narrative: Exam Narrative: Pleasant. NAD. Skin is warm dry. Vitals noted with elevated blood pressure initially. Appears mildly uncomfortable. Head is atraumatic. Neck is supple nontender. Back nontender. Breathing easily. Heart in elevated rate. Extremities without edema. Well-perfused. Examination of the right thigh with mild fullness in the mid lateral thigh. Does not have greater trochanteric tenderness. Not really with IT tenderness. Sore to palpation in the mid thigh. light abrasion here. Knee does not appear to have been injured. abdomen pelvis nontender Const: Vital Signs, click to edit/add: Vital Signs - 24 hr 09/27/25 19:52 09/27/25 19:56 Temperature 98.2 F Pulse Rate [Left P ulse Oximeter] 104 H Respiratory Rate 16 Blood Pressure [Ri ght Upper Arm] 190/100 H 185/98 H Pulse Oximetry 99 Oxygen Delivery Me thod Room Air Documenting provider has reviewed patient's vital signs: yes Course Vital Signs Vital signs: Initial Vital Signs Temperature 98.2 F 09/27/25 19:52 Temperature Source Temporal Artery Scan 09/27/25 19:52 Pulse Rate 104 H 09/27/25 19:52 Respiratory Rate 16 09/27/25 19:52 Blood Pressure 190/100 H 09/27/25 19:52 Blood Pressure Mean 130 H 09/27/25 19:52 Blood Pressure Position Sitting 09/27/25 19:52 Pulse Oximetry 99 09/27/25 19:52 Oxygen Delivery Method Room Air 09/27/25 19:52 Vital Signs Temperature 98.2 F 09/27/25 19:52 Pulse Rate 104 H 09/27/25 19:52 Respiratory Rate 16 09/27/25 19:52 Blood Pressure 190/100 H 09/27/25 19:52 Pulse Oximetry 99 09/27/25 19:52 Oxygen Delivery Method Room Air 09/27/25 19:52 Temperature 98.2 F 09/27/25 23:43 Pulse Rate 84 09/27/25 23:43 Respiratory Rate 16 09/27/25 23:43 Blood Pressure 132/74 09/27/25 23:43 Pulse Oximetry 99 09/27/25 23:43 Oxygen Delivery Method Room Air 09/27/25 23:43 Medical Decision Making MDM Narrative Medical decision making narrative: Evidently this was quite painful. I think this is and was contusion. though might be evolving hematoma. Does not appear to have markedly injured this area but intensely uncomfortable initially. Can certainly verify absence of bony abnormality with imaging of the right femur. no other significant injuries are noted. Does not feel that he needs anything for pain at this time. X-ray of the right femur four views independently reviewed by me looks unremarkable for acute bony abnormality. Do not see any significant soft tissue swelling. Radiology over-read below Indication: Fall, hematoma, pain. Technique: Right femur 4 views. Comparison: None. Findings: Bones: Alignment is normal. No acute fracture or suspicious bone lesion. Small well corticated ossicle adjacent to the medial femoral condyle, likely sequela of remote trauma. Small superior patellar enthesophyte. Joint spaces: Unremarkable. No knee joint effusion. Soft tissues: Unremarkable. Impression: No evidence of an acute bony abnormality. Dictated by Carlo Hernandez MD @ 09/27/2025 11:28:03 PM Mr. Augustine appears reassured. Dispensed 6 in Kenneth wrap. See patient discharge plan for further discussion I would ice the sore areas 2-3 times daily over the next few days. Can apply compression otherwise with this Kenneth wrap. The Kenneth wrap is also useful hold on the ice packs. Be seen is simply not improved in 7-10 days. Can take up to 800 mg of ibuprofen or up to 1000 mg of acetaminophen per dose per Medical Records Medical records reviewed: Yes I reviewed the patient's medical records Discharge Plan Discharge Clinical Impression: Contusion, Abrasion Patient Disposition: Home, Self-Care Condition: Stable Instructions: Bone Bruise (ED) Additional Instructions: I would ice the sore areas 2-3 times daily over the next few days. Can apply compression otherwise with this Kenneth wrap. The Kenneth wrap is also useful hold on the ice packs. Be seen is simply not improved in 7-10 days. Can take up to 800 mg of ibuprofen or up to 1000 mg of acetaminophen per dose per Prescriptions: No Action (DME) Accu-Chek Patt Plus test strp Strip See Rx Instructions .ROUTE .MEDSUPPLY Qty: 10 Patient Comments: USE TO TEST THREE TIMES DAILY Rx Instructions: As directed glipizide 5 mg tablet extended release 24hr 5 mg PO QDAY lisinopril-hydrochlorothiazide 10-12.5 mg tablet 1 tab PO QDAY ondansetron 4 mg tablet,disintegrating 4 mg PO Q6H PRN (Reason: nausea and vomiting) Qty: 14 0RF Follow Up/Referrals: Gerhard Rey MD [Primary Care Provider, Family Practice] Stand Alone Forms: [facility] Info Instructions
--- NOTE | 2025-09-27 22:49 | CRLHL7_ITS ---
For Patients: As a result of the Century Cures Act, medical imaging exams and procedure reports are released immediately into your electronic medical record. You may view this report before your referring provider. If you have questions, please contact your health care provider. Indication: Fall, hematoma, pain. Technique: Right femur 4 views. Comparison: None. Findings: Bones: Alignment is normal. No acute fracture or suspicious bone lesion. Small well corticated ossicle adjacent to the medial femoral condyle, likely sequela of remote trauma. Small superior patellar enthesophyte. Joint spaces: Unremarkable. No knee joint effusion. Soft tissues: Unremarkable. Impression: No evidence of an acute bony abnormality. Dictated by Carlo Hernandez MD @ 09/27/2025 11:28:03 PM (Electronically Signed)
[2025-09-27 23:43] VITALS: BP 132/74; PULSE 84; RESP 16; TEMP 36.8; O2SAT 99
== END 2025-09-27 23:44 | disposition home or self-care (01) ==
PROVIDERS: Emergency Provider Family Medicine; PCP Family Medicine
DX: S70.11XA Contusion of right thigh, initial encounter (principal); E11.9 Type 2 diabetes mellitus without complications; Z79.84 Long term (current) use of oral hypoglycemic drugs; W00.0XXA Fall on same level due to ice and snow, initial encounter; Y93.01 Activity, walking, marching and hiking
CPT/HCPCS: 73552; 99283; 99284